=== PATIENT | male | born 1950 | race Caucasian/White ===

== ENCOUNTER 2017-06-22 08:58 | Inpatient (IN) | payer OTHER ==
[2017-06-22 09:34] LABS: % IMMATURE GRANULYOCYTES 0.7 % (0.0-1.1); ADD DIFF? NO; ADD MORPH? NO; ADD SCAN? NO; ATYPICAL LYMPHOCYTE FLAG 10 (0-99); FRAGMENT RBC FLAG 0 (0-99); HEMATOCRIT 42.6 % (40.0-51.0); HEMOGLOBIN 15.4 g/dL (13.7-17.5); LEFT SHIFT FLG 0 (0-99); LIPEMIA HEMOLYSIS FLAG 90 (0-99); MEAN CELL HEMOGLOBIN 33.3 pg (27.9-34.1); MEAN CELL HEMOGLOBIN CONCENTR. 36.2 g/dL (32.4-36.7); MEAN PLATELET VOLUME 9.1 fL (8.7-11.7); PLATELET CLUMPS FLAG 0 (0-99); PLATELET COUNT 354 10^3/uL (150-400); RED BLOOD CELL COUNT 4.63 10^6/uL (4.40-6.38); RED CELL DISTRIBUTION WIDTH 12.6 % (11.5-15.2)
--- NOTE | 2017-06-22 09:34 | EDPHY ---
HPI/HX/ROS/PE/MDM Narrative: CHIEF COMPLAINT: Cough HPI: The patient is a 66 y/o male arriving with a non-[facility] home health caregiver complaining of worsened cough and wheezing. He has had a cough since June 09. On June 09, he fell in the shower. He refused to go to the hospital. Today the caregiver noticed the cough was worse and that he was wheezing. He may have had a fever yesterday according to caregiver. He denies any associated symptoms HPI obtained primarily through caregiver as patient only answer no when asked questions. REVIEW OF SYSTEMS: Aside from elements discussed in the HPI, a comprehensive 10-point review of systems was reviewed and is negative. PMH: Denies SOCIAL HISTORY: Employed by [employer], lives in [facility] PHYSICAL EXAM: General:Patient is alert, in no acute distress, only responding no to questions ENT:Eyes are normal to inspection. ENT inspection normal. Neck: Normal inspection. Full range of motion. Respiratory: Course rhonchi bilaterally. No respiratory distress. Cardiovascular: Regular rate and rhythm. Strong peripheral pulses. Normal cap refill. Abdomen:The abdomen is nontender to palpation. There are no peritoneal signs. There are normal bowel sounds. Back: Normal to inspection. No tenderness to palpation. Skin: Mild ecchymosis on the left lower costal margin with no tenderness to palpation. Normal color. No rash. Warm and dry. Extremities: Normal appearance. Full range of motion. Neuro: Oriented x3. Normal motor function. Normal sensory function. ED Course: Study: X-ray of the chest Indication: Cough Results: X-ray of the chest was obtained. The results of the study are: left lower lobe pneumonia The study was read by the radiologist, Dr. Collins. I viewed the images myself on the PACS system. Study: CT of the chest Indication: Cough, trauma Results: CT scan of the chest was obtained. The results of the study are: left lower rib fracture, left lower lob pneumonia The study was read by the radiologist, Dr. Collins. I viewed the images myself on the PACS system. 1057: I reassessed this patient and informed him of the results of his workup. I would like to admit him for further treatment. He agrees to this plan. 1118: I spoke with the hospitalist service. Dr. Ho will be admitting doctor. - Data Points Imaging Results: Imaging Impressions Chest X-Ray 06/22/17 09:10 Impression: Left lower lobe pneumonia with effusion. Difficult to exclude an element of CHF or new (since 2005) underlying interstitial lung disease. Chest CT 06/22/17 09:59 Impression: 1. Single nondisplaced left rib fracture without evidence of occult pneumothorax. Suspect left lower lobe pneumonia with moderate effusion. A small right pleural effusion is present and of uncertain etiology. There is no obvious cardiac failure. No upper abdominal posttraumatic abnormality is identified. Results communicated to Dr. Rosales at 10:47 am. Laboratory Results: Laboratory Results 06/22/17 09:25 06/22/17 09:25 06/22/17 06/22/17 06/22/17 09:55 09:50 09:25 WBC RBC Hgb Hct MCV MCH MCHC RDW Plt Count MPV Neut % (Auto) Lymph % (Auto) [place] % (Auto) Eos % (Auto) Baso % (Auto) Nucleat RBC Rel Count Absolute Neuts (auto) Absolute Lymphs (auto) Absolute Monos (auto) Absolute Eos (auto) Absolute Basos (auto) Absolute Nucleated RBC Immature Gran % Immature Gran # VBG Lactic Acid 2.0 mmol/L mmol/L (0.7-2.1) Sodium 133 mEq/L L mEq/L (134-144) Potassium 4.5 mEq/L mEq/L (3.5-5.2) Chloride 99 mEq/L mEq/L (97-110) Carbon Dioxide 22 mEq/l mEq/l (22-31) Anion Gap 12 mEq/L mEq/L (8-16) BUN 23 mg/dL mg/dL (7-23) Creatinine 1.5 mg/dL H mg/dL (0.7-1.3) Estimated GFR 47 Glucose 114 mg/dL H mg/dL (70-100) Calcium 9.1 mg/dL mg/dL (8.5-10.4) Nasal Influenza A PCR NEGATIVE FOR FLU A (NEGATIVE) Nasal Influenza B PCR NEGATIVE FOR FLU B (NEGATIVE) 06/22/17 09:25 WBC 14.85 10^3/uL H 10^3/uL (3.80-9.50) RBC 4.63 10^6/uL 10^6/uL (4.40-6.38) Hgb 15.4 g/dL g/dL (13.7-17.5) Hct 42.6 % % (40.0-51.0) MCV 92.0 fL fL (81.5-99.8) MCH 33.3 pg pg (27.9-34.1) MCHC 36.2 g/dL g/dL (32.4-36.7) RDW 12.6 % % (11.5-15.2) Plt Count 354 10^3/uL 10^3/uL (150-400) MPV 9.1 fL fL (8.7-11.7) Neut % (Auto) 82.9 % H % (39.3-74.2) Lymph % (Auto) 5.1 % L % (15.0-45.0) [place] % (Auto) 10.4 % % (4.5-13.0) Eos % (Auto) 0.5 % L % (0.6-7.6) Baso % (Auto) 0.4 % % (0.3-1.7) Nucleat RBC Rel Count 0.0 % % (0.0-0.2) Absolute Neuts (auto) 12.33 10^3/uL H 10^3/uL (1.70-6.50) Absolute Lymphs (auto) 0.75 10^3/uL L 10^3/uL (1.00-3.00) Absolute Monos (auto) 1.54 10^3/uL H 10^3/uL (0.30-0.80) Absolute Eos (auto) 0.07 10^3/uL 10^3/uL (0.03-0.40) Absolute Basos (auto) 0.06 10^3/uL 10^3/uL (0.02-0.10) Absolute Nucleated RBC 0.00 10^3/uL 10^3/uL (0-0.01) Immature Gran % 0.7 % % (0.0-1.1) Immature Gran # 0.10 10^3/uL 10^3/uL (0.00-0.10) VBG Lactic Acid Sodium Potassium Chloride Carbon Dioxide Anion Gap BUN Creatinine Estimated GFR Glucose Calcium Nasal Influenza A PCR Nasal Influenza B PCR General Time Seen by Provider: 06/22/17 09:14 Initial Vital Signs: Initial Vital Signs Temperature (C) 36.7 C 06/22/17 09:03 Heart Rate 93 06/22/17 09:03 Respiratory Rate 16 06/22/17 09:03 Blood Pressure 149/92 H 06/22/17 09:03 O2 Sat (%) 93 06/22/17 09:03 O2 Delivery Mode Room Air Allergies/Adverse Reactions: No Known Allergies Allergy (Verified 06/22/17 09:02) Home Medications: Medication Instructions Recorded Benztropine Mesylate [Cogentin 2 mg PO DAILY 04/14/13 (RX)] Trifluoperazine HCl [Stelazine 2MG 2 mg PO DAILY 04/14/13 (RX)] Departure - Departure Disposition: [facility] Acute Clinical Impression: Pneumonia Qualifiers: Pneumonia type: due to unspecified organism Laterality: left Lung location: lower lobe of lung Qualified Code(s): J18.1 - Lobar pneumonia, unspecified organism Condition: Fair Referrals: Lynn Beavers MD [Primary Care Provider] - As per Instructions Report Scribed for: Khalif Rosales Report Scribed by: Twila Waters Date of Report: 06/22/17 Time of Report: 09:34 Physician Review and Approval Statement: Portions of this note were transcribed by an ED scribe. I personally performed the history, physical exam, and medical decision making; and confirm the accuracy of the information in the transcribed note.
[2017-06-22 09:56] LABS: ANION GAP 12 mEq/L (8-16); CALCIUM 9.1 mg/dL (8.5-10.4); CARBON DIOXIDE 22 mEq/l (22-31); CHLORIDE 99 mEq/L (97-110); CREATININE 1.5 mg/dL (0.7-1.3); GLOMERULAR FILTRATION RATE 47; GLUCOSE 114 mg/dL (70-100); POTASSIUM 4.5 mEq/L (3.5-5.2); SODIUM 133 mEq/L (134-144)
[2017-06-22] MEDS ORDERED: AZITHROMYCIN IV 500 MG in D5W 250 ML IV ONE (11:09)
[2017-06-22] MEDS ORDERED: NS 1,000 ML IV ONE (11:09)
[2017-06-22] MEDS ORDERED: ONDANSETRON DISINTEGRATING 4 MG TAB PO PRN (11:18)
[2017-06-22] MEDS ORDERED: NS 500 ML IV ONE (11:18)
[2017-06-22] MEDS ORDERED: ONDANSETRON 4 MG/2 ML VIAL IVP PRN (11:18)
[2017-06-22] MEDS ORDERED: ACETAMINOPHEN 325 MG TAB PO PRN (11:18)
[2017-06-22] MEDS ORDERED: FAMOTIDINE 20 MG TAB PO PRN (11:46)
[2017-06-22] MEDS: guaiFENesin 600 MG TAB.ER PO SCH ×2 (13:20→20:48)
--- NOTE | 2017-06-22 14:10 | GHP ---
[f rep st] HISTORY AND PHYSICAL DATE OF ADMISSION: 06/22/2017 CHIEF COMPLAINT: Shortness of breath. HISTORY OF PRESENT ILLNESS: A 66-year-old male, with a history of autism who lives independently in the community, was found to be febrile and short of breath by a friend today and brought to the emergency department for evaluation. Of note, the patient had a recent fall in the shower, approximately a week ago, with persistent left-sided chest pain and bruising. The patient endorses subjective fevers and chills, endorses shortness of breath and sputum that he describes as slightly yellow. Patient denies any difficulty with p.o. intake, denies nausea, denies vomiting, denies diarrhea. The patient has a chronic urinary cath that he changes regularly. Describes no changes in his urine output or appearance of his urine. Has had no complications recently in his catheter exchanges. PAST MEDICAL HISTORY: 1. Autism, lives independently. 2. Neurogenic bladder with indwelling catheter 3. CKD. 4. Hypertension. SOCIAL HISTORY: Patient lives independently. Does not smoke, drink, or use illicit drugs. FAMILY HISTORY: Negative for neurogenic bladder. REVIEW OF SYSTEMS: A 10-point review of systems is negative, with the exception of that reported in the HPI. ADVANCED DIRECTIVES: Patient is full cor, full tube. His sister is his medical power of employee benefits attorney. PHYSICAL EXAMINATION: VITAL SIGNS: Blood pressure 143/93, heart rate 82, respiratory rate 18, 92% on room air, 36.7. GENERAL: This is a healthy- appearing, middle-aged male in no acute distress. HEENT: Notable for moist mucous membranes. EYES: Negative for any icterus. CARDIAC: Patient has regular rate and rhythm. PULMONARY: Good respiratory effort. Has diminished breath sounds at bilateral bases. Crackles appreciated on the left. GASTROINTESTINAL: Positive bowel sounds. ABDOMEN: Soft and nontender. MUSCULOSKELETAL: Negative for any lower extremity edema. SKIN: Negative for any rashes. NEUROLOGIC: Patient is alert and oriented x3. PSYCHIATRIC: He is pleasant and cooperative on interview and examination. LABORATORY DATA: White count 14.8, recent baseline 4.5; hematocrit 42.6; platelets of 354. Sodium 133; creatinine 1.5, recent baseline 1.5; BUN 23. The patient is influenza A and influenza B negative. Chest x-ray, which I personally reviewed and interpreted, shows left lower lobe infiltrate with effusion. ASSESSMENT AND PLAN: This is a 66-year-old male, presenting with shortness of breath and cough. 1. Community-acquired pneumonia. Patient has clear infiltrate on chest imaging , leukocytosis, and symptoms consistent with pneumonia. Will initiate ceftriaxone and azithromycin. Blood cultures have been obtained from the emergency department. Chest CT has been ordered to rule out rib fracture and/ or complications from his recent fall. The patient is not hypoxic at this time and moving good air. Will place as-needed nebulizer. No indication to schedule inhaled bronchodilators at this time. I have written the patient for Mucinex. 2. Chronic indwelling catheter. Patient has been managing this without complication. Followed closely by Dr. Villar in the outpatient setting. Will continue his home medications. 3. Hypertension. The patient's systolic blood pressures at presentation are in the 130s to 140s. Will continue his home medications, which include amlodipine and metoprolol, prophylaxis with Lovenox. DIET: Regular. DISPOSITION: I expect in less than 2 midnights if the patient responds well to supportive treatment. We will arrange for potential disposition in the morning. Discussed case with the emergency room physician. Patient will be triaged to the medical-surgical floor for care. /[id number]/MODL MTDD
[2017-06-22] MEDS ORDERED: PNEUMOC 13-VAL CONJ-DIP CRM/PF 0.5 ML SYR IM ONE (15:19)
--- NOTE | 2017-06-22 16:10 | ASMTCASEMG ---
Living Arrangements What is your living Answers: Alone arrangement? Who do you live with? Type Of Residence What kind of residence do Answers: House you live in? Discharge Plan Comments Coordination Status Comments Notes: Pt is a 66 y/o man admitted for pneumonia. Pt will be spending the holidays w/ his 91 y/o father that lives at [facility]. CM spoke w/ Dr. Ho regarding d/c POC. Pt would benefit from having a HC; RN check in on him while he is in [place]. CM sent referral to [facility]. CM to follow. Date Signed: 06/22/2017 04:09 PM Electronically Signed By:SAMUEL Mazariegos
[2017-06-22] MEDS: BENZONATATE 100 MG CAP PO PRN (16:34)
[2017-06-22] MEDS: ALBUTEROL 3 ML DEYVIAL IH PRN (16:50)
[2017-06-22] MEDS: BENZTROPINE MESYLATE 2 MG TAB PO SCH (20:48)
[2017-06-22] MEDS: TRIFLUOPERAZINE HCL 5 MG TAB PO SCH (20:48)
[2017-06-23] MEDS: BENZONATATE 100 MG CAP PO PRN ×3 (02:37→18:41)
[2017-06-23 04:45] LABS: % IMMATURE GRANULYOCYTES 0.6 % (0.0-1.1); ABSOLUTE IMMATURE GRANULOCYTES 0.08 10^3/uL (0.00-0.10); ADD DIFF? NO; ADD MORPH? NO; ADD SCAN? NO; ATYPICAL LYMPHOCYTE FLAG 0 (0-99); FRAGMENT RBC FLAG 0 (0-99); HEMATOCRIT 39.5 % (40.0-51.0); HEMOGLOBIN 14.3 g/dL (13.7-17.5); LEFT SHIFT FLG 0 (0-99); LIPEMIA HEMOLYSIS FLAG 90 (0-99); MEAN CELL HEMOGLOBIN 33.4 pg (27.9-34.1); MEAN CELL HEMOGLOBIN CONCENTR. 36.2 g/dL (32.4-36.7); MEAN CELL VOLUME 92.3 fL (81.5-99.8); MEAN PLATELET VOLUME 9.6 fL (8.7-11.7); PLATELET CLUMPS FLAG 0 (0-99); PLATELET COUNT 331 10^3/uL (150-400); RED BLOOD CELL COUNT 4.28 10^6/uL (4.40-6.38); RED CELL DISTRIBUTION WIDTH 12.8 % (11.5-15.2)
[2017-06-23] MEDS: METOPROLOL SUCCINATE XR 100 MG TAB PO SCH (08:29)
[2017-06-23] MEDS: OXYBUTYNIN 5 MG EXT REL TAB PO SCH (08:30)
[2017-06-23] MEDS: BENZTROPINE MESYLATE 2 MG TAB PO SCH ×2 (08:31→21:28)
[2017-06-23] MEDS: CETIRIZINE 10 MG TAB PO SCH (08:31)
[2017-06-23] MEDS: guaiFENesin 600 MG TAB.ER PO SCH ×2 (08:31→21:27)
[2017-06-23] MEDS: ENOXAPARIN 40 MG/0.4 ML SYR SC SCH (08:32)
[2017-06-23] MEDS ORDERED: NON-FORMULARY NEW DRUG (Fexofenadine Hcl [Allegra Allergy] 60 MG) PO SCH (09:00)
[2017-06-23] MEDS: AZITHROMYCIN IV 500 MG in D5W 250 ML IV SCH (09:10)
[2017-06-23] MEDS: ALBUTEROL 3 ML DEYVIAL IH PRN (13:36)
--- NOTE | 2017-06-23 14:53 | ASMTCMCOM ---
CM Note CM Note Notes: CM spoke w/ Dr. Ho regarding d/c POC. Pt is not being discharged today. CM spoke w/ [facility] and they are able to accept pt for HC, RN services. CM to follow. Date Signed: 06/23/2017 02:52 PM Electronically Signed By:SAMUEL Mazariegos
--- NOTE | 2017-06-23 15:31 | HOSPPROG ---
Hospitalist Progress Note Assessment/Plan: # CAP - pt with persistent terrible cough overnight - oxygen saturations 96% on 2L CT chest (personally reviewed and interpreted) LLL pna with effusion and non -displaced rib fx - cont IV abx - cont guaifenesin, albuterol and Tessalon pearles - wean O2 as able - encourage IS # non-displaced rib fx - 2/2 mechanical fall at home - encourage IS - pain meds prn #hypovolemic hyponatremia- sodium 133 -recheck sodium s/p fluids # HTN- controlled on home meds # Neurogenic bladder # diet- tolerating PO # dispo- > 2MN as requires ongoing IV abx and supportive pulmonary care I have discussed the case with CM- will arrange home health in [facility] upon pt discharge Subjective: coughing alot Objective: Vital Signs Temp Pulse Resp BP Pulse Ox 36.6 C 90 18 125/87 H 88 L 06/23/17 11:45 06/23/17 13:42 06/23/17 11:45 06/23/17 11:45 06/23/17 13:45 Laboratory Results 06/23/17 04:10 06/22/17 06/23/17 06/24/17 05:59 05:59 05:59 Intake Total 1500 Output Total 1600 1150 Balance -100 -1150 - Physical Exam Constitutional: appears nourished Eyes: anicteric sclera Ears, Nose, Mouth, Throat: moist mucous membranes Cardiovascular: regular rate and rhythym Respiratory: no respiratory distress, no rales or rhonchi Gastrointestinal: normoactive bowel sounds Genitourinary: no bladder fullness Skin: warm Musculoskeletal: No asymmetric calves Neurologic: AAOx3 Psychiatric: interacting appropriately, No agitated Lymph, Heme, Immunologic: no cervical LAD ICD10 Worksheet Patient Problems: Problems Problem Status Onset Pneumonia Acute
[2017-06-23] MEDS: PHENOL 177 ML THROAT SPRAY PO PRN ×3 (17:21→21:29)
[2017-06-23] MEDS: TRIFLUOPERAZINE HCL 5 MG TAB PO SCH (21:28)
[2017-06-24 04:56] LABS: POTASSIUM 4.9 mEq/L (3.5-5.2)
[2017-06-24 04:57] LABS: ANION GAP 8 mEq/L (8-16); CALCIUM 8.5 mg/dL (8.5-10.4); CARBON DIOXIDE 22 mEq/l (22-31); CHLORIDE 105 mEq/L (97-110); CREATININE 1.3 mg/dL (0.7-1.3); GLOMERULAR FILTRATION RATE 55; GLUCOSE 95 mg/dL (70-100); SODIUM 135 mEq/L (134-144)
[2017-06-24] MEDS: CEPACOL LOZENGE PO PRN ×2 (07:10→15:01)
[2017-06-24] MEDS: BENZONATATE 100 MG CAP PO PRN ×2 (07:10→15:01)
[2017-06-24] MEDS: OXYBUTYNIN 5 MG EXT REL TAB PO SCH (08:15)
[2017-06-24] MEDS: ENOXAPARIN 40 MG/0.4 ML SYR SC SCH (08:15)
[2017-06-24] MEDS: BENZTROPINE MESYLATE 2 MG TAB PO SCH (08:15)
[2017-06-24] MEDS: guaiFENesin 600 MG TAB.ER PO SCH (08:16)
[2017-06-24] MEDS: METOPROLOL SUCCINATE XR 100 MG TAB PO SCH (08:16)
[2017-06-24] MEDS: CETIRIZINE 10 MG TAB PO SCH (08:16)
[2017-06-24] MEDS: AZITHROMYCIN IV 500 MG in D5W 250 ML IV SCH (09:01)
--- NOTE | 2017-06-24 09:54 | PDIAF ---
- Diagnosis Diagnosis: pneumonia Code Status: Full Code - Medication Management Discharge Medications: Medications to Continue on Transfer Benztropine Mesylate [Cogentin (*)] 1 mg PO BID 04/14/13 [Last Taken 06/22/17] Ascorbic Acid [Vitamin C 500 mg (*)] 500 mg PO DAILY 06/22/17 [Last Taken ] Famotidine [Pepcid 20 MG (*)] 20 mg PO DAILY PRN 06/22/17 [Last Taken Unknown] Fexofenadine HCl [Yen Allergy] 60 mg PO DAILY 06/22/17 [Last Taken 06/22/17] Herbals/Supplements -Info Only 1 ea PO DAILY 06/22/17 [Last Taken Unknown] Metoprolol Succinate Xr [Toprol Xl 100 mg (*)] 100 mg PO DAILY 06/22/17 [Last Taken 06/22/17] Oxybutynin Chloride Xl [Ditropan Xl 5mg (*)] 5 mg PO DAILY 06/22/17 [Last Taken 06/22/17] Trifluoperazine HCl [Stelazine 5MG (*)] 10 mg PO HS 06/22/17 [Last Taken ] amLODIPine BESYLATE [Norvasc 2.5 mg (*)] 2.5 mg PO DAILY@19 06/22/17 [Last Taken 06/21/17] Benzonatate [Tessalon Pearles] 200 mg PO TID PRN #30 cap 06/24/17 [Last Taken Unknown] guaiFENesin [Mucinex 600 MG (*)] 1,200 mg PO BID #30 tab.er 06/24/17 [Last Taken Unknown] levOFLOXACIN [levAQUIN (*)] 750 mg PO DAILY #5 tab 06/24/17 [Last Taken Unknown] Discharge Medications: Refer to the Discharge Home Medication list for PRN reason. - Orders Services needed: Home Care, Registered Nurse Home Care Face to Face: I certify that this patient was under my care and that I had the required mosr-lu-onny encounter meeting the encounter requirements on the discharge day. My findings support the fact that the patient is homebound as defined in Home Care Face to Face Continued: CMS Chapter 7 Medicare Benefits Manual 30.1.1 , The condition of the patient is such that there exists a normal inability to leave home and consequently, leaving home would require a considerable and taxing effort. Diet Recommendation: no restrictions on diet Diet Texture: Regular Texture Diet - Follow Up Care Current Providers and Referrals: Lynn Beavers MD [Primary Care Provider] - As per Instructions
[2017-06-24] MEDS: ALBUTEROL 3 ML DEYVIAL IH PRN (10:22)
[2017-06-24 11:32] VITALS: BP 122/91; PULSE 86; RESP 18; TEMP 98.1; O2SAT 93
--- NOTE | 2017-06-24 13:40 | GDS ---
[f rep st] DISCHARGE SUMMARY DISCHARGE DIAGNOSES: 1. Community-acquired pneumonia. 2. Nondisplaced left-sided rib fracture secondary to fall. 3. Hypertension. 4. Autism. 5. Chronic kidney disease. 6. Neurogenic bladder. HISTORY OF PRESENT ILLNESS: This is a 66-year-old male with a history of autism who presents with co mplaints of shortness of breath and cough. For details of patient's initial presentation, please see the history and physical dated 06/22/2017. CONSULTATIVE SERVICES: None. PROCEDURES: On 06/22/2017, patient had a CT of the chest which showed left lower lobe infiltrate wit h associated effusion and a non displaced left-sided rib fracture. HOSPITAL COURSE: 1. Community-acquired pneumonia. Patient was initiated on empiric IV antibiotics. Blood cultures w ere obtained from the emergency department and were negative. Patient has had improvement in his dys pnea as well as his hypoxia. He is saturating 93% on room air. On the day of disposition, he will be discharged to complete oral regiment of levofloxacin, to complete a full 7-day course, and will foll ow in the outpatient setting with his primary care provider. 2. Cough secondary to pneumonia. Patient is being discharged with Tessalon Perles, Mucinex, recomme ndations for Chloraseptic spray and Cepacol for throat irritation. 3. Chronic kidney disease. Patient is at his baseline renal function. On the day of disposition, cr eatinine is 1.3. 4. Hyponatremia secondary to hypovolemia. The patient's sodium improved from 133 to 135, with fluid resuscitation. MEDICATIONS AT THE TIME OF DISPOSITION: Please reference medication reconciliation printed on 2016. FOLLOWUP APPOINTMENTS: Primary care as needed in the next 1 to 2 weeks for post disposition. PENDING STUDIES: Pending studies at the time of this dictation include blood cultures drawn on 06/22, which are preliminary no growth to date. I spent greater than 30 minutes in the planning and c oordination of this discharge. /[id number]/MODL
--- NOTE | 2017-06-25 10:16 | ASDISCHSUM ---
Discharge Information Plan Status:Home with Home Health Medically Cleared to Leave:06/23/2017 Discharge Date:06/24/2017 03:14 PM CM D/C Disposition:Home Health Service ADT D/C Disposition:Home, Routine, Self-Care Projected Discharge Date:06/24/2017 11:00 AM Transportation at D/C:Family Discharge Delay Reason: Follow-Up Date:06/24/2017 11:00 AM Discharge Slot: Final Diagnosis: Placement Information Referral Type:*Home Health Care Services Referral ID:[id number] Provider Name:[facility] [facility] Address 1:[address] Phone Number: Address 2: Fax Number: City:[place] Selection Factors: State:[place] Patient Contact Information Contact Name:DEBORAH Relationship:Sister Address:[address] Work Phone: City:[place] Alternate Phone: State/[facility] Code:[place] [address] Email: Financial Information Financial Class:HMO and PPO Plans Primary Plan Desc:[facility] Primary Plan Number:[id number] Secondary Plan Desc:MEDICARE INPATIENT Secondary Plan Number:[id number] Assessment Information [facility] Initial CM Assessment Living Arrangements What is your living Answers: Alone arrangement? Who do you live with? Type Of Residence What kind of residence do Answers: House you live in? Discharge Plan Comments Coordination Status Comments Notes: Pt is a 66 y/o man admitted for pneumonia. Pt will be spending the holidays w/ his 91 y/o father that lives at [facility]. CM spoke w/ Dr. Ho regarding d/c POC. Pt would benefit from having a HC; RN check in on him while he is in [place]. CM sent referral to [facility]. CM to follow. Date Signed: 06/22/2017 04:09 PM Electronically Signed By:SAMUEL Mazariegos [facility] Progress Note CM Note CM Note Notes: CM spoke w/ Dr. Ho regarding d/c POC. Pt is not being discharged today. CM spoke w/ [facility] and they are able to accept pt for HC, RN services. CM to follow. Date Signed: 06/23/2017 02:52 PM Electronically Signed By:SAMUEL Mazariegos Case Management Discharge Plan Note Case Management Discharge Discharge Order Complete? Answers: Yes Patient to Obtain Answers: via Family Medications Transportation Arranged Answers: Family/Friends Faxed Final Orders Answers: Yes Notes: Hard faxed to [facility]Facility Transfer Answers: Yes Notes: Hard faxed to [facility] Printed & Faxed to Homecare Receiving Agency Discharge Comments Notes: Pt. is d/cing today with [facility]. Malena at [place] verified visit of an RN for tomorrow. Bedside RN provided [facility] pharmacy information to [facility] open on . sent scripts to [facility]. GIULIA hard faxed d/c paperwork to [place] at [facility]' request. Date Signed: 06/24/2017 01:30 PM Electronically Signed By:Ofelia Marrero LCSW Intervention Information
== END 2017-06-24 15:14 | disposition home or self-care (01) | DRG 194 ==
LOC: F3E 12:26 → OBSVTOIN 06-23 15:22
PROVIDERS: ADMIT Hospitalist; ATTEND Hospitalist
DX: J18.8 Other pneumonia, unspecified organism (principal); S22.32XA Fracture of one rib, left side, initial encounter for closed fracture; F84.9 Pervasive developmental disorder, unspecified; I12.9 Hypertensive chronic kidney disease with stage 1 through stage 4 chronic kidney disease, or unspecified chronic kidney disease; N18.9 Chronic kidney disease, unspecified; N31.9 Neuromuscular dysfunction of bladder, unspecified; Z23 Encounter for immunization; W19.XXXA Unspecified fall, initial encounter
CPT/HCPCS: 97116-GP; 97161-GP; 97165-GO; 97535-GO; G0009; G0378; G8978-GP-CJ; G8979-GP-CI; G8987-GO-CI; G8988-GO-CI; J0456; J0696; J1650

== ENCOUNTER → 2017-08-12 | Outpatient (CLI) | payer OTHER | LOC: FIMAGING 15:18 | PROVIDERS: ATTEND Family Medicine | DX: Z03.89 Encounter for observation for other suspected diseases and conditions ruled out (principal); S22.32XD Fracture of one rib, left side, subsequent encounter for fracture with routine healing ==

== ENCOUNTER → 2018-07-12 | Outpatient (CLI) | payer OTHER ==
[~2018-07-12] MED LIST: GADOBUTROL 10 ML VIAL IVP ONE
== END ==
LOC: FIMAGING 08:48
PROVIDERS: ATTEND Psychiatry & Neurology Neurology
DX: M48.07 Spinal stenosis, lumbosacral region (principal); M53.87 Other specified dorsopathies, lumbosacral region
CPT/HCPCS: 82565-PO; A9585